=== PATIENT | male | born 1960 | race Hispanic/Latino ===

== ENCOUNTER 2019-11-09 07:25 | Day surgery (SDC) | payer MEDICARE ==
[~2019-11-09 07:25] MED LIST: SODIUM CHLORIDE 0.9% 350 ML ONE
[2019-11-09] MEDS ORDERED: ASPIRIN EC 325 MG TAB PO ONE ×2 (08:15→09:00)
[2019-11-09 08:46] LABS: Basophils # (Auto) 0.1 K/mm3 (0.0-0.1); Basophils % (Auto) 0.7 % (0.0-1.8); Eosinophils # (Auto) 0.3 K/mm3 (0.0-0.4); Eosinophils % (Auto) 2.6 % (0.0-4.3); Hematocrit 45.9 % (35.5-45.6); Hemoglobin 15.5 gm/dl (11.8-15.2); Lymphocytes # (Auto) 2.2 K/mm3 (1.2-5.4); Lymphocytes % (Auto) 21.9 % (13.4-35.0); Mean Corpuscular HGB Conc 34 % (32-34); Mean Corpuscular Volume 89 fl (84-94); Monocytes # (Auto) 0.9 K/mm3 (0.0-0.8); Monocytes % (Auto) 8.8 % (0.0-7.3); Platelet Count 252 K/mm3 (140-440); Red Blood Count 5.15 M/mm3 (3.65-5.03); Red Cell Distribution Width 13.7 % (13.2-15.2)
[2019-11-09 08:59] LABS: BUN/Creatinine Ratio 11; Blood Urea Nitrogen 9 mg/dL (9-20); Calcium 9.3 mg/dL (8.4-10.2); Hemolysis Index 7; INR 1.08 (0.87-1.13)
[2019-11-09 09:00] LABS: Partial Thromboplastin Time 32.2 Sec. (24.2-36.6)
[2019-11-09] MEDS ORDERED: SODIUM CHLORIDE 0.9% 500 ML 500 ML IV SCH (09:00)
[2019-11-09] MEDS: MIDAZOLAM 2 MG/2 ML INJ ONE ×2 (12:29→12:42)
[2019-11-09] MEDS: HEPARIN 10,000 UNITS/10 ML VIAL ONE ×3 (12:30→12:45)
[2019-11-09] MEDS: VERAPAMIL 5 MG/2 ML INJ ONE ×3 (12:30→12:45)
[2019-11-09] MEDS: LIDOCAINE (2%) 20 MG/1 ML VIAL 20 ML MDV INFILTRATI ONE ×2 (12:30→12:43)
[2019-11-09] MEDS: fentaNYL 100 MCG/2 ML INJ ONE ×2 (12:30→12:42)
[2019-11-09] MEDS: HEPARIN/NS 5000 UNIT/500ML 1,000 ML IR ONE ×2 (12:31→12:35)
[2019-11-09] MEDS: SODIUM CHLORIDE 0.9% 500 ML 500 ML ONE ×2 (12:31→12:35)
[2019-11-09] MEDS: NITROGLYCERIN SYRINGE 3 ML ONE ×2 (12:32→12:45)
[2019-11-09] MEDS ORDERED: traMADol 50 MG TAB PO PRN (13:07)
--- NOTE | 2019-11-09 13:10 | Discharge Summary ---
Short Stay Discharge Plan Activity: advance as tolerated Weight Bearing Status: Full Weight Bearing Diet: low fat, low cholesterol, low salt Wound: keep clean and dry Special Instructions: no heavy lifting (3 days) Follow up with: BENEDICTO THAO MD [Primary Care Provider] - 7 Days MARIO NORTON MD [Staff Physician] - 7 Days
[2019-11-09] MEDS ORDERED: SODIUM CHLORIDE 0.9% 1000 ML 1,000 ML IV SCH (13:15)
--- NOTE | 2019-11-09 13:21 | Cardiac Catherization Report ---
CARDIAC CATHETERIZATION REPORT REASON FOR PROCEDURE: Dilated cardiomyopathy, abnormal thallium stress test, preoperative gallbladder surgery. PROCEDURES: 1. Left heart catheterization. 2. Selective left and right coronary angiography. 3. Left ventricle angiography. 4. Sedation time; start 12:42, end 12:54. DESCRIPTION OF PROCEDURE: The patient was prepped and draped in a sterile fashion after informed consent. The right radial cath site was prepped and draped after a negative Shen's test. The right radial artery was entered using Seldinger technique followed by placement of a 6-Portuguese hydrophilic sheath. Routine radial cocktail was administered via the sheath. Selective left and right coronary angiography was performed using #3.5 left Celso and #4 right Celso. The pigtail catheter was used for left ventricular angiography. The catheters were removed, sheath removed and hemostasis achieved using a TR band. The patient was returned to the postprocedure unit in stable condition. There were no complications. FINDINGS: HEMODYNAMICS: Left ventricular end-diastolic pressure was 13. Ascending aortic pressure 101/66. There was no significant pressure gradient on pullback across the aortic valve. CORONARY ANGIOGRAPHY: Left main coronary artery was angiographically normal. The left anterior descending artery contained diffuse mild atherosclerosis involving its proximal and mid segments. No significant obstructive lesions were noted. A large ramus intermedius artery contained mild ostial narrowing, otherwise free of significant disease. The circumflex artery contained a 40-50% stenosis in its mid AV groove segment, just after the origin of a medium sized mid obtuse marginal branch. Otherwise, there were mild irregularities of the remainder of the circumflex system. The right coronary artery was a small caliber, but dominant vessel. This vessel contained diffuse mild to moderate atherosclerosis in its mid segment. There was mild to moderate left ventricular systolic dysfunction, estimated ejection fraction 40%. CONCLUSION: 1. Mild diffuse nonobstructive coronary artery disease as above. 2. Mild to moderate nonischemic cardiomyopathy, ejection fraction 40%. RECOMMENDATION: Risk factor modification and medical therapy. JOB# [id number] CA/NTS
[2019-11-09 15:29] VITALS: BP 107/63
== END 2019-11-09 16:04 | disposition home or self-care (01) ==
LOC: CATHLABREC 07:25
PROVIDERS: ATTEND Internal Medicine Cardiovascular Disease
DX: I42.0 Dilated cardiomyopathy (principal); R94.39 Abnormal result of other cardiovascular function study; I25.10 Atherosclerotic heart disease of native coronary artery without angina pectoris; E78.00 Pure hypercholesterolemia, unspecified; I10 Essential (primary) hypertension; M19.90 Unspecified osteoarthritis, unspecified site; F17.210 Nicotine dependence, cigarettes, uncomplicated; Z88.2 Allergy status to sulfonamides; Z79.82 Long term (current) use of aspirin; Z79.899 Other long term (current) drug therapy; Z98.890 Other specified postprocedural states; Z79.01 Long term (current) use of anticoagulants
CPT/HCPCS: 36415; 80048; 85025; 85610; 85730; 93005; 93010; 93458; 99156; C1894; J1644; J2250; J3010; J7040; Q9967